=== PATIENT | male | born 1935 | race Hispanic/Latino ===

== ENCOUNTER 2019-09-20 15:50 | Emergency (ER) | payer OTHER ==
--- NOTE | 2019-09-20 16:46 | RAD REPORT ---
EXAM DESCRIPTION: CT - Head Brain Wo Cont - 09/20/2019 4:39 pm CLINICAL HISTORY: WEAKNESS Headache, drowsiness COMPARISON: No comparisons TECHNIQUE: All CT scans are performed using dose optimization technique as appropriate and may inclu de automated exposure control or mA/KV adjustment according to patient size. FINDINGS: No intracranial hemorrhage, hydrocephalus or extra-axial fluid collection.Moderate general ized brain atrophy is present with moderate periventricular and deep white matter chronic microvascul ar ischemic changes.No areas of brain edema or evidence of midline shift. The paranasal sinuses and mastoids are clear. The calvarium is intact. IMPRESSION: No acute intracranial abnormality.
[2019-09-20 16:47] LABS: Absolute Lymphocytes (CBC) 2.4 K/uL (0.7-4.9); Basophils % 0.8 % (0-1.3); Hematocrit 37.9 % (39.6-49.0); MPV 10.7 fL (7.6-11.3); RBC Red Blood Cell Count 4.23 M/uL (4.33-5.43)
[2019-09-20 17:07] LABS: Albumin 3.9 g/dL (3.4-5.0); Bilirubin Total 0.7 mg/dL (0.2-1.0); Protein, Total 7.4 g/dL (6.4-8.2)
[2019-09-20 17:20] LABS: Urine Bacteria <20 /HPF (NONE SEEN); Urine RBC NONE SEEN /HPF (NONE SEEN)
[2019-09-20 17:21] LABS: Urine Blood NEGATIVE (NEG); Urine Glucose NEGATIVE (NEG); Urine Protein NEGATIVE (NEG)
[2019-09-20 17:21] LABS: Urine Culture Reflex Order NOT NEEDED; Urine Mucus 1+ /HPF (NONE SEEN)
[2019-09-20] MEDS ORDERED: NA CHLORIDE 0.9% 500 ML ONE (17:38)
--- NOTE | 2019-09-20 18:03 | ER ---
Nurse's Notes [facility] Name: Adelso Ochoa Age: 83 yrs Sex: Male : 1935 Arrival Date: 09/20/2019 Time: 15:51 Bed 7 Private MD: Diagnosis: Weakness;Malaise and fatigue Presentation: 09/20 15:54 Presenting complaint: Patient states: My doctor sent me here because I need to be la1 checked out. I have been weak since last Friday. Transition of care: patient was not received from another setting of care. Onset of symptoms was September 20, 2019. Risk Assessment: Do you want to hurt yourself or someone else? Patient reports no desire to harm self or others. Initial Sepsis Screen: Does the patient meet any 2 criteria? No. Patient's initial sepsis screen is negative. Does the patient have a suspected source of infection? No. Patient's initial sepsis screen is negative. Care prior to arrival: None. 15:54 Method Of Arrival: Ambulatory la1 15:54 Acuity: PARVIZ 3 la1 Historical: - Allergies: 15:54 No Known Allergies; la1 - PMHx: 15:54 Hypertension; la1 - Immunization history:: Adult Immunizations up to date. - Social history:: Smoking status: Patient/guardian denies using tobacco. - Ebola Screening: : No symptoms or risks identified at this time. Screenin:02 Abuse screen: Denies threats or abuse. Nutritional screening: No deficits noted. tw2 Tuberculosis screening: No symptoms or risk factors identified. Fall Risk Secondary diagnosis (15 points) impaired mobility. Assessment: 16:25 General: Appears in no apparent distress. uncomfortable, Behavior is calm, cooperative, jl7 appropriate for age. Pain: Denies pain. Neuro: Level of Consciousness is awake, alert, obeys commands, Oriented to person, place, time, situation. Cardiovascular: Heart tones S1 S2 present Patient's skin is warm and dry. Respiratory: Airway is patent Respiratory effort is even, unlabored, Respiratory pattern is regular, symmetrical, Breath sounds are clear bilaterally. GI: No signs and/or symptoms were reported involving the gastrointestinal system. : Reports burning with urination, urinary frequency. Derm: Skin is pink, warm \T\ dry. 18:17 Reassessment: dc pending awaiting fluids to finish infusing. ss Vital Signs: 15:57 Pulse 70; Resp 16; Temp 97.2(TE); Pulse Ox 100% on R/A; Weight 73.48 kg; la1 15:58 BP 141 / 76; la1 16:42 BP 142 / 77; Pulse 54; Resp 16 S; Pulse Ox 100% on R/A; jl7 18:00 BP 155 / 77 Supine; Pulse 49; rv 18:00 BP 151 / 71 Sitting; Pulse 48; rv 18:00 BP 142 / 73 Standing; Pulse 54; rv 18:36 BP 134 / 72; Pulse 51; Resp 15; Pulse Ox 96% on R/A; rv ED Course: 15:51 Patient arrived in ED. as 15:54 Arm band placed on left wrist. la1 15:56 Triage completed. la1 16:02 Bed in low position. Call light in reach. Adult w/ patient. tw2 16:03 Ezequiel Rust, SAE is Primary Nurse. jl7 16:15 Marcelino Griggs NP is PHCP. pm1 16:15 Filippo Sarmiento MD is Attending Physician. pm1 16:25 monitoring analyst on. Pulse ox on. NIBP on. jl7 16:25 Initial lab(s) drawn, by nv, sent to lab. Urine collected: clean catch specimen, jl7 cloudy. Inserted saline lock: 20 gauge in right forearm, using aseptic technique. Blood collected. 16:39 CT Head Brain wo Cont In Process Unspecified. EDMS 17:04 EKG done, by ED staff, reviewed by Filippo Sarmiento MD. ms 18:36 No provider procedures requiring assistance completed. IV discontinued, intact, rv bleeding controlled, No redness/swelling at site. Pressure dressing applied. Administered Medications: 18:00 Drug: NS 0.9% 500 ml Route: IV; Rate: bolus; Site: right forearm; rv 18:37 Follow up: IV Status: Completed infusion rv Outcome: 18:03 Discharge ordered by . pm1 18:36 Discharged to home ambulatory, with family. rv 18:36 Condition: good 18:36 Discharge instructions given to patient, family, Instructed on discharge instructions, follow up and referral plans. Demonstrated understanding of instructions, follow-up care. 18:37 Patient left the ED. rv Signatures: Dispatcher [employer] EDMS Enid Rashid Maria ms Yadira, Heather, RN RN ss López, Chilo, RN RN la1 Marcelino Griggs, BARRER AND TACKER BARRER AND TACKER pm1 Mary Longoria, RN RN tw2 Ezequiel Rust, RN RN jl7 Dallas Mora, RN RN rv
--- NOTE | 2019-09-20 18:03 | EDPHYS ---
Physician Documentation [facility] Name: Adelso Ochoa Age: 83 yrs Sex: Male : 1935 Arrival Date: 09/20/2019 Time: 15:51 Bed 7 Private MD: ED Physician Filippo Sarmiento HPI: 09/20 16:29 This 83 yrs old Male presents to ER via Ambulatory with complaints of Weakness.pm1 16:29 The patient presents to the emergency department with weakness of the entire body, pm1 generalized weakness. Onset: The symptoms/episode began/occurred 1 week(s) ago. Associated signs and symptoms: The patient has no apparent associated signs or symptoms, Pertinent negatives: fever, headache, N/V/D, chest pain, cough, shortness of breath. Severity of symptoms: Pain is currently a 0 / 10. Patient's baseline: Neuro: alert and fully oriented, Motor: no deficits, Ambulation: walks without assistance, Speech: normal. The patient has been recently seen by a physician: the patient's primary care provider, Dr. Meadows earlier today. Patient reports of decreased energy for the past 1 week. Feels like he does not want to do anything. Patient presented to his PCP toady and was instructed to report to the ER for evaluation. Historical: - Allergies: 15:54 No Known Allergies; la1 - PMHx: 15:54 Hypertension; la1 - Immunization history:: Adult Immunizations up to date. - Social history:: Smoking status: Patient/guardian denies using tobacco. - Ebola Screening: : No symptoms or risks identified at this time. ROS: 16:29 Eyes: Negative for injury, pain, redness, and discharge, ENT: Negative for injury, pm1 pain, and discharge, Neck: Negative for injury, pain, and swelling, Cardiovascular: Negative for chest pain, palpitations, and edema. 16:29 Respiratory: Negative for shortness of breath, cough, wheezing, and pleuritic chest pain, Abdomen/GI: Negative for abdominal pain, nausea, vomiting, diarrhea, and constipation, Back: Negative for injury and pain, : Negative for injury, bleeding, discharge, and swelling, MS/Extremity: Negative for injury and deformity, Skin: Negative for injury, rash, and discoloration, Neuro: Negative for headache, weakness, numbness, tingling, and seizure. 16:29 Constitutional: Positive for fatigue, malaise, Negative for body aches, chills, fever, poor PO intake. Exam: 16:29 Constitutional: This is a well developed, well nourished patient who is awake, alert, pm1 and in no acute distress. Head/Face: Normocephalic, atraumatic. Neck: Trachea midline, no thyromegaly or masses palpated, and no cervical lymphadenopathy. Supple, full range of motion without nuchal rigidity, or vertebral point tenderness. No Meningismus. Chest/axilla: Normal chest wall appearance and motion. Nontender with no deformity. No lesions are appreciated. Cardiovascular: Regular rate and rhythm with a normal S1 and S2. No gallops, murmurs, or rubs. Normal PMI, no JVD. No pulse deficits. Respiratory: Lungs have equal breath sounds bilaterally, clear to auscultation and percussion. No rales, rhonchi or wheezes noted. No increased work of breathing, no retractions or nasal flaring. Abdomen/GI: Soft, non-tender, with normal bowel sounds. No distension or tympany. No guarding or rebound. No evidence of tenderness throughout. Back: No spinal tenderness. No costovertebral tenderness. Full range of motion. Skin: Warm, dry with normal turgor. Normal color with no rashes, no lesions, and no evidence of cellulitis. MS/ Extremity: Pulses equal, no cyanosis. Neurovascular intact. Full, normal range of motion. 16:29 Neuro: Orientation: is normal, Mentation: is normal, Motor: is normal, moves all fours, Sensation: is normal, no obvious gross deficits. Vital Signs: 15:57 Pulse 70; Resp 16; Temp 97.2(TE); Pulse Ox 100% on R/A; Weight 73.48 kg; la1 15:58 BP 141 / 76; la1 16:42 BP 142 / 77; Pulse 54; Resp 16 S; Pulse Ox 100% on R/A; jl7 18:00 BP 155 / 77 Supine; Pulse 49; rv 18:00 BP 151 / 71 Sitting; Pulse 48; rv 18:00 BP 142 / 73 Standing; Pulse 54; rv 18:36 BP 134 / 72; Pulse 51; Resp 15; Pulse Ox 96% on R/A; rv MDM: 16:15 Patient medically screened. pm1 18:02 Data reviewed: vital signs. Data interpreted: Pulse oximetry: on room air is 100 %. pm1 Interpretation: normal. Counseling: I had a detailed discussion with the patient and/or guardian regarding: the historical points, exam findings, and any diagnostic results supporting the discharge/admit diagnosis, lab results, radiology results, the need for outpatient follow up, a family practitioner, to return to the emergency department if symptoms worsen or persist or if there are any questions or concerns that arise at home. 09/20 16:22 Order name: Urine Microscopic Only; Complete Time: 17:30 pm1 09/20 16:22 Order name: CBC with Diff; Complete Time: 17:06 pm1 09/20 16:22 Order name: CMP; Complete Time: 17:30 pm1 09/20 16:22 Order name: CT Head Brain wo Cont; Complete Time: 16:50 pm1 09/20 16:40 Order name: Urine Dipstick--Ancillary (enter results); Complete Time: 17:30 ms 09/20 17:06 Order name: TSH; Complete Time: 17:38 pm1 09/20 16:22 Order name: Urine Dipstick-Ancillary (obtain specimen); Complete Time: 16:36 pm1 09/20 16:22 Order name: IV Saline Lock; Complete Time: 16:36 pm1 09/20 16:22 Order name: EKG; Complete Time: 16:23 pm1 09/20 16:22 Order name: EKG - Nurse/Tech; Complete Time: 17:04 pm1 09/20 17:31 Order name: Orthostatic Blood Pressure; Complete Time: 18:00 pm1 Administered Medications: 18:00 Drug: NS 0.9% 500 ml Route: IV; Rate: bolus; Site: right forearm; rv 18:37 Follow up: IV Status: Completed infusion rv Disposition: 09/21 07:14 Co-signature as Attending Physician, Filippo Sarmiento MD I agree with the assessment and isaak plan of care. Disposition: 09/20/19 18:03 Discharged to Home. Impression: Weakness, Malaise and fatigue. - Condition is Stable. - Discharge Instructions: Weakness, Fatigue. - Medication Reconciliation Form, Thank You Letter, Antibiotic Education, Prescription Opioid Use form. - Follow up: Emergency Department; When: As needed; Reason: Worsening of condition. Follow up: Private Physician; When: 2 - 3 days; Reason: Recheck today's complaints, Continuance of care, Re-evaluation by your physician. - Problem is new. - Symptoms have improved. Signatures: Dispatcher [employer] EDMS Filippo Sarmiento, Chilo Nagel MD, cha, RN RN la1 Marcelino Griggs, LUMBER CHECKER LUMBER CHECKER pm1 Dallas Mora, RN RN rv Corrections: (The following items were deleted from the chart) 09/20 18:03 18:03 09/20/2019 18:03 Discharged to Home. Impression: Weakness. Condition is Stable. pm1 Forms are Medication Reconciliation Form, Thank You Letter, Antibiotic Education, Prescription Opioid Use. Follow up: Emergency Department; When: As needed; Reason: Worsening of condition. Follow up: Private Physician; When: 2 - 3 days; Reason: Recheck today's complaints, Continuance of care, Re-evaluation by your physician. Problem is new. Symptoms have improved. pm1 18:37 18:03 09/20/2019 18:03 Discharged to Home. Impression: Weakness; Malaise and fatigue. rv Condition is Stable. Discharge Instructions: Weakness, Fatigue. Forms are Medication Reconciliation Form, Thank You Letter, Antibiotic Education, Prescription Opioid Use. Follow up: Emergency Department; When: As needed; Reason: Worsening of condition. Follow up: Private Physician; When: 2 - 3 days; Reason: Recheck today's complaints, Continuance of care, Re-evaluation by your physician. Problem is new. Symptoms have improved. pm1
[2019-09-20 19:09] VITALS: TEMP 97.2
[2019-09-20 19:14] VITALS: BP 134/72; O2SAT 96
--- NOTE | 2019-09-21 05:30 | EKG ---
Test Date: 2019-09-20 Test Time: 17:00:16 Medical Office Specialist: DELL MEASUREMENT RESULTS: Intervals: Rate: 52 VT: 216 QRSD: 98 QT: 468 QTc: 435 [place]: P: 52 VT: 216 QRS: 40 T: 63 INTERPRETIVE STATEMENTS: Sinus bradycardia with 1st degree AV block Otherwise normal ECG No previous ECG available for comparison Electronically Signed On 09-21-19 05:30:14 LITHOSTRIPPER by Ernesto Kendrick
== END 2019-09-20 18:37 | disposition home or self-care (01) ==
LOC: ER 15:50
DX: R53.81 Other malaise (principal); R53.83 Other fatigue; I10 Essential (primary) hypertension
CPT/HCPCS: 93005; 85025; 36415; 84443; 80053; 70450; 96360; 99284; J7040; 81003; 81015

== ENCOUNTER 2020-11-28 18:50 | Emergency (ER) | payer OTHER ==
[2020-11-28 23:35] LABS: Absolute Lymphocytes (CBC) 3.4 K/uL (0.7-4.9); Basophils % 0.3 % (0-1.3); Hematocrit 39.3 % (39.6-49.0); Lymphocytes % 39.4 % (15.3-44.8); MPV 10.8 fL (7.6-11.3); RBC Red Blood Cell Count 4.32 M/uL (4.33-5.43)
[2020-11-28 23:38] LABS: Protime INR 0.99
[2020-11-28] MEDS ORDERED: FOLIC ACID 5 MG/ML VIAL ONE ×2 (23:42→23:46)
[2020-11-28] MEDS ORDERED: NA CHLORIDE 0.9% 100 ML ONE (23:45)
[2020-11-28] MEDS ORDERED: NA CHLORIDE 0.9% 1,000 ML ONE (23:46)
[2020-11-29 00:04] LABS: ALT/SGPT 16 U/L (12-78); AST/SGOT 21 U/L (15-37); Albumin 3.7 g/dL (3.4-5.0); Alkaline Phosphatase 90 U/L (45-117); BUN Blood Urea Nitrogen 17 mg/dL (7-18); Bicarbonate 30 mmol/L (21-32); Bilirubin Direct 0.2 mg/dL (0-0.2); Bilirubin Total 0.6 mg/dL (0.2-1.0); Glucose Level 102 mg/dL (74-106); Lipase 138 U/L (73-393); Magnesium 2.1 mg/dL (1.8-2.4); NT PRO-BNP 675 pg/mL (<450); Potassium 3.7 mmol/L (3.5-5.1); Protein, Total 7.6 g/dL (6.4-8.2); Sodium Level 142 mmol/L (136-145); Troponin (Emerg Dept Use Only) < 0.02 ng/mL (0.0-0.045)
[2020-11-29 00:47] LABS: Urine Blood NEGATIVE (NEG); Urine Glucose NEGATIVE (NEG); Urine Protein NEGATIVE (NEG)
[2020-11-29] MEDS ORDERED: ASPIRIN 81 MG CHEWABLE TABLET ONE (01:18)
[2020-11-29] MEDS ORDERED: dexAMETHasone 10 MG/ML VIAL ONE (01:42)
[2020-11-29] MEDS ORDERED: FAMOTIDINE 20 MG/2 ML VIAL IV ONE (01:43)
[2020-11-29] MEDS ORDERED: NA CHLORIDE 0.9% 250 ML ONE (01:43)
[2020-11-29] MEDS ORDERED: AZITHROMYCIN 500 MG INJ IVPB ONE (01:43)
[2020-11-29] MEDS ORDERED: CEFTRIAXONE/SWI 1gm 1 GM/10 ML SYR ONE (01:44)
--- NOTE | 2020-11-29 02:42 | ER ---
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 States he iw would make up stories that aren't true. My sister says he does that sometimes, but it has been getting worse and more frequent. Coronavirus screen: At this time, the client does not indicate any symptoms associated with coronavirus-19. Ebola Screen: Patient negative for fever greater than or equal to 101.5 degrees Fahrenheit, and additional compatible Ebola Virus Disease symptoms Patient denies exposure to infectious person. Patient denies travel to an Ebola-affected area in the 21 days before illness onset. No symptoms or risks identified at this time. Initial Sepsis Screen: Does the patient meet any 2 criteria? No. Patient's initial sepsis screen is negative. Does the patient have a suspected source of infection? No. Patient's initial sepsis screen is negative. Risk Assessment: Do you want to hurt yourself or someone else? Patient reports no desire to harm self or others. Onset of symptoms was November 20, 2020. 19:30 Method Of Arrival: Ambulatory iw 19:30 Acuity: PARVIZ 3 iw Triage Assessment: 19:41 General: Appears in no apparent distress. comfortable, Behavior is calm, cooperative. iw Pain: Denies pain. Historical: - Allergies: 19:41 No Known Allergies; iw - PMHx: 19:41 Hypertension; Hyperlipidemia; GERD; Gout; iw - Immunization history:: Adult Immunizations up to date. - Social history:: Smoking status: Patient/guardian denies using tobacco, but has a distant history of tobacco abuse. - Family history:: not pertinent. Screenin:16 Abuse screen: Denies threats or abuse. Nutritional screening: No deficits noted. ea Tuberculosis screening: No symptoms or risk factors identified. Fall Risk IV access (20 points). Assessment: 23:16 General: Appears in no apparent distress. Behavior is cooperative. Pain: Denies pain. ea Neuro: Level of Consciousness is awake, alert, obeys commands, Oriented to person, place. Respiratory: Airway is patent Respiratory effort is even, unlabored, Respiratory pattern is regular, symmetrical. Derm: Skin is pink, warm \\T\\ dry. 11/29 00:21 Reassessment: Patient and/or family updated on plan of care and expected duration. Pain ea level reassessed. Pt alert and oriented to self, respirations even and unlabored, chest expansions even and symmetrical. Pt denies pain at this time. Son reports pt has been hallucinating for the past few days. 02:55 Reassessment: Patient and/or family updated on plan of care and expected duration. Pain ea level reassessed. Patient is alert, oriented x 3, equal unlabored respirations, skin warm/dry/pink. Discharge instruction given to patient and family , verbalized the understanding of instruction. Pt left ED via wheelchair accompanied by son. Vital Signs: 11/28 19:30 BP 174 / 77; Pulse 86; Resp 18; Temp 98.6; Pulse Ox 99% ; Weight 73.48 kg; Height 5 ft. iw 5 in. (165.10 cm); Pain 0/10; 22:00 BP 118 / 83 LA (auto/); Pulse 96 MON; Resp 18 S; Pulse Ox 94% on R/A; sf 23:36 BP 146 / 64 (auto/); Pulse 66 MON; Resp 18 S; Pulse Ox 93% on R/A; sf 11/29 00:25 BP 196 / 80; Pulse 60; Resp 18; Pulse Ox 100% ; rr5 02:55 BP 167 / 89; Pulse 64; Resp 18; Temp 98.2; Pulse Ox 100% ; ea 11/28 19:30 Body Mass Index 26.96 (73.48 kg, 165.10 cm) iw ED Course: 11/28 18:55 Patient arrived in ED. ds1 19:30 Arm band placed on right wrist. iw 19:38 Triage completed. iw 22:52 Filippo Sarmiento MD is Attending Physician. isaak 23:15 Meme Chacon, SAE is Primary Nurse. ea 23:16 Patient has correct armband on for positive identification. Bed in low position. Call ea light in reach. Side rails up X2. 23:16 Inserted saline lock: 20 gauge in right antecubital area, using aseptic technique. ea Blood collected. 23:42 CT Head Brain wo Cont In Process Unspecified. EDMS 11/29 00:02 XRAY Chest (1 view) In Process Unspecified. EDMS 00:49 CT Chest For PE Angio In Process Unspecified. EDMS 01:18 COVID-19 : Document "Date of Symptom Onset" if Symptomatic. Sent. sf 02:41 Ced Quiñonez MD is Referral Physician. isaak 02:41 Sulaiman Melendez MD is Referral Physician. [facility] 02:55 No provider procedures requiring assistance completed. IV discontinued, intact, ea bleeding controlled, No redness/swelling at site. Pressure dressing applied. Administered Medications: 11/28 23:44 Drug: NS 0.9% 500 ml Route: IV; Rate: bolus; Site: right antecubital; sf 11/29 02:59 Follow up: IV Status: Completed infusion ea 11/28 23:49 Drug: foLIC Acid 1 mg Route: IVPB; Site: right antecubital; sf 11/29 02:59 Follow up: IV Status: Completed infusion ea 00:20 Drug: NS 0.9% 1000 ml Route: IV; Rate: 125 ml/hr; Site: right antecubital; ea 03:00 Follow up: IV Status: Completed infusion ea 01:35 Drug: Pepcid 20 mg Route: IVP; Site: right antecubital; sf 02:57 Follow up: Response: No adverse reaction ea 02:58 Follow up: Response: No adverse reaction sf 01:36 Drug: Decadron - Dexamethasone 10 mg Route: IVP; Infused Over: 2 mins; Site: right sf antecubital; 02:56 Follow up: Response: No adverse reaction ea 02:57 Follow up: Response: No adverse reaction sf 01:38 Drug: Rocephin 1 grams Route: IV; Rate: per protocol; Infused Over: 5 mins; Site: right sf antecubital; 02:57 Follow up: Response: No adverse reaction sf 02:59 Follow up: Response: No adverse reaction; IV Status: Completed infusion ea 01:44 Drug: Zithromax 500 mg Route: IVPB; Infused Over: 1 hrs; Site: right antecubital; sf 02:58 Follow up: Response: No adverse reaction; IV Status: Completed infusion ea 01:46 Drug: Aspirin Chewable Tablet 324 mg Route: PO; ea 02:56 Follow up: Response: No adverse reaction ea Outcome: 02:41 Discharge ordered by . isaak 02:57 Discharged to home via wheelchair, with family. ea 02:57 Condition: stable 02:57 Discharge instructions given to patient, family, Instructed on discharge instructions, follow up and referral plans. Demonstrated understanding of instructions, follow-up care. 03:05 Patient left the ED. ea Signatures: Dispatcher [employer] EDFilippo Mares MD MD cha Sanford, Demi ds1 Trupti Myers RN RN iw Meme Chacon RN RN ea Roque, Raymond RN RN rr5 Jeferson Jacobs RN RN sf
--- NOTE | 2020-11-29 02:42 | EDPHYS ---
Physician Documentation [facility] Name: Adelso Ochoa Age: 85 yrs Sex: Male : 1935 Arrival Date: 11/28/2020 Time: 18:55 Bed 6 Private MD: ED Physician Filippo Sarmiento HPI: 11/29 00:13 This 85 yrs old Male presents to ER via Ambulatory with complaints of isaak Confusion, Hallucinations. 00:13 The patient's problem is reported as altered mental status, confused, at times. Onset: isaak The symptoms/episode began/occurred 2 day(s) ago. Duration: The episodes are intermittent. Context: the episode(s) was witnessed, by family, son. The symptoms are alleviated by nothing. The symptoms are aggravated by nothing. The patient presents with trouble concentrating. Onset: The symptoms/episode began/occurred and improved intermittent. Possible causes: CVA or TIA, unknown. Associated signs and symptoms: Pertinent positives: confusion. Current symptoms: In the emergency department the patient's symptoms have improved, markedly, is more alert. Historical: - Allergies: 11/28 19:41 No Known Allergies; iw - PMHx: 19:41 Hypertension; Hyperlipidemia; GERD; Gout; iw - Immunization history:: Adult Immunizations up to date. - Social history:: Smoking status: Patient/guardian denies using tobacco, but has a distant history of tobacco abuse. - Family history:: not pertinent. ROS: 11/29 00:13 Constitutional: Negative for fever, chills, and weight loss, Eyes: Negative for injury, isaak pain, redness, and discharge, ENT: Negative for injury, pain, and discharge, Neck: Negative for injury, pain, and swelling, Cardiovascular: Negative for chest pain, palpitations, and edema, Respiratory: Negative for shortness of breath, cough, wheezing, and pleuritic chest pain, Abdomen/GI: Negative for abdominal pain, nausea, vomiting, diarrhea, and constipation, Back: Negative for injury and pain, : Negative for injury, bleeding, discharge, and swelling, MS/Extremity: Negative for injury and deformity, Skin: Negative for injury, rash, and discoloration, Psych: Negative for depression, anxiety, suicide ideation, homicidal ideation, and hallucinations, Allergy/Immunology: Negative for hives, rash, and allergies, Endocrine: Negative for neck swelling, polydipsia, polyuria, polyphagia, and marked weight changes, Hematologic/Lymphatic: Negative for swollen nodes, abnormal bleeding, and unusual bruising. Neuro: Positive for altered mental status, weakness. Exam: 00:13 Radiologist reports: negative isaak 00:13 Constitutional: This is a well developed, well nourished patient who is awake, alert, and in no acute distress. Head/Face: Normocephalic, atraumatic. Eyes: Pupils equal round and reactive to light, extra-ocular motions intact. Lids and lashes normal. Conjunctiva and sclera are non-icteric and not injected. Cornea within normal limits. Periorbital areas with no swelling, redness, or edema. ENT: Nares patent. No nasal discharge, no septal abnormalities noted. Tympanic membranes are normal and external auditory canals are clear. Oropharynx with no redness, swelling, or masses, exudates, or evidence of obstruction, uvula midline. Mucous membranes moist. Neck: Trachea midline, no thyromegaly or masses palpated, and no cervical lymphadenopathy. Supple, full range of motion without nuchal rigidity, or vertebral point tenderness. No Meningismus. Chest/axilla: Normal chest wall appearance and motion. Nontender with no deformity. No lesions are appreciated. Cardiovascular: Regular rate and rhythm with a normal S1 and S2. No gallops, murmurs, or rubs. Normal PMI, no JVD. No pulse deficits. Respiratory: Lungs have equal breath sounds bilaterally, clear to auscultation and percussion. No rales, rhonchi or wheezes noted. No increased work of breathing, no retractions or nasal flaring. Abdomen/GI: Soft, non-tender, with normal bowel sounds. No distension or tympany. No guarding or rebound. No evidence of tenderness throughout. Back: No spinal tenderness. No costovertebral tenderness. Full range of motion. Male : Normal genitalia with no discharge or lesions. Skin: Warm, dry with normal turgor. Normal color with no rashes, no lesions, and no evidence of cellulitis. MS/ Extremity: Pulses equal, no cyanosis. Neurovascular intact. Full, normal range of motion. Neuro: Awake and alert, GCS 15, oriented to person, place, time, and situation. Cranial nerves II-XII grossly intact. Motor strength 5/5 in all extremities. Sensory grossly intact. Cerebellar exam normal. Normal gait. Psych: Awake, alert, with orientation to person, place and time. Behavior, mood, and affect are within normal limits. 00:21 ECG was reviewed by the Attending Physician. isaak 00:27 ECG was reviewed by the Attending Physician. isaak Vital Signs: 11/28 19:30 BP 174 / 77; Pulse 86; Resp 18; Temp 98.6; Pulse Ox 99% ; Weight 73.48 kg; Height 5 ft. iw 5 in. (165.10 cm); Pain 0/10; 22:00 BP 118 / 83 LA (auto/); Pulse 96 MON; Resp 18 S; Pulse Ox 94% on R/A; sf 23:36 BP 146 / 64 (auto/); Pulse 66 MON; Resp 18 S; Pulse Ox 93% on R/A; sf 11/29 00:25 BP 196 / 80; Pulse 60; Resp 18; Pulse Ox 100% ; rr5 02:55 BP 167 / 89; Pulse 64; Resp 18; Temp 98.2; Pulse Ox 100% ; ea 11/28 19:30 Body Mass Index 26.96 (73.48 kg, 165.10 cm) iw MDM: 11/28 22:52 Patient medically screened. [facility] 11/29 00:16 Differential diagnosis: CVA, TIA, Dementia, Alzheimer disease, metabolic disorder. isaak Differential Diagnosis: CVA, electrolyte abnormality, hypoglycemia, UTI, volume depletion. Data reviewed: vital signs, nurses notes, lab test result(s), EKG, radiologic studies. Data interpreted: elder counselor: rate is 66 beats/min, rhythm is regular. Test interpretation: by ED physician or midlevel provider: ECG, plain radiologic studies. Counseling: I had a detailed discussion with the patient and/or guardian regarding: the historical points, exam findings, and any diagnostic results supporting the discharge/admit diagnosis, lab results, radiology results, the need for outpatient follow up. 11/28 23:00 Order name: Basic Metabolic Panel [facility] 11/28 23:00 Order name: CBC with Diff [facility] 11/28 23:00 Order name: LFT's [facility] 11/28 23:00 Order name: Magnesium [facility] 11/28 23:00 Order name: NT PRO-BNP [facility] 11/28 23:00 Order name: PT-INR; Complete Time: 23:45 [facility] 11/28 23:00 Order name: Troponin (emerg Dept Use Only); Complete Time: 00:09 [facility] 11/28 23:00 Order name: Lipase; Complete Time: 00:09 [facility] 11/28 23:00 Order name: Blood Culture Adult (2) [facility] 11/28 23:00 Order name: Lactate; Complete Time: 00:29 [facility] 11/28 23:00 Order name: Basic Metabolic Panel; Complete Time: 00:09 [facility] 11/28 23:01 Order name: CBC with Automated Diff; Complete Time: 23:45 [facility] 11/28 23:01 Order name: Liver (Hepatic) Function; Complete Time: 00:09 [facility] 11/28 23:00 Order name: XRAY Chest (1 view) [facility] 11/28 23:00 Order name: CT Head Brain wo Cont [facility] 11/28 23:01 Order name: Magnesium; Complete Time: 00:09 [facility] 11/28 23:01 Order name: NT PRO-BNP; Complete Time: 00:09 [facility] 11/29 00:12 Order name: CT Chest For PE Angio [facility] 11/29 00:15 Order name: Urine Dipstick--Ancillary (enter results); Complete Time: 00:48 tt3 11/29 00:23 Order name: Urine Culture [facility] 11/29 01:07 Order name: COVID-19 : Document "Date of Symptom Onset" if Symptomatic. [facility] 11/29 02:36 Order name: SARS-COV-2 RT PCR; Complete Time: 02:41 [facility] 11/28 23:00 Order name: EKG; Complete Time: 23:02 [facility] 11/28 23:00 Order name: Cardiac monitoring; Complete Time: 00:20 [facility] 11/28 23:00 Order name: EKG - Nurse/Tech; Complete Time: 00:20 [facility] 11/28 23:00 Order name: IV Saline Lock; Complete Time: 00:20 [facility] 11/28 23:00 Order name: Labs collected and sent; Complete Time: 00:20 [facility] 11/28 23:00 Order name: O2 Per Protocol; Complete Time: 00:20 [facility] 11/28 23:00 Order name: O2 Sat Monitoring; Complete Time: 00:20 [facility] 11/28 23:00 Order name: Urine Dipstick-Ancillary (obtain specimen); Complete Time: 00:19 [facility] 11/29 00:27 Order name: EKG; Complete Time: : isaak 11/29 00:27 Order name: EKG - Nurse/Tech; Complete Time: 00: isaak EC:21 Rate is 65 beats/min. Rhythm is regular. QRS [place] is Normal. [place] interval is normal. QRS isaak interval is normal. QT interval is normal. No Q waves. T waves are Normal. ST Segment is elevated in leads I, II. Clinical impression: NSR w/ Non-specific ST/T Changes. Interpreted by me. 00:27 Rate is 60 beats/min. Rhythm is regular. QRS [place] is Normal. [place] interval is prolonged isaak at 214 msec. QRS interval is normal. QT interval is normal. No Q waves. T waves are Normal. No ST changes noted. Clinical impression: NSR w/ Non-specific ST/T Changes and No evidence of ischemia. Interpreted by me. Reviewed by me. Administered Medications: 11/28 23:44 Drug: NS 0.9% 500 ml Route: IV; Rate: bolus; Site: right antecubital; 11/29 02:59 Follow up: IV Status: Completed infusion ea 11/28 23:49 Drug: foLIC Acid 1 mg Route: IVPB; Site: right antecubital; sf 11/29 02:59 Follow up: IV Status: Completed infusion ea 00:20 Drug: NS 0.9% 1000 ml Route: IV; Rate: 125 ml/hr; Site: right antecubital; ea 03:00 Follow up: IV Status: Completed infusion ea 01:35 Drug: Pepcid 20 mg Route: IVP; Site: right antecubital; sf 02:57 Follow up: Response: No adverse reaction ea 02:58 Follow up: Response: No adverse reaction sf 01:36 Drug: Decadron - Dexamethasone 10 mg Route: IVP; Infused Over: 2 mins; Site: right sf antecubital; 02:56 Follow up: Response: No adverse reaction ea 02:57 Follow up: Response: No adverse reaction sf 01:38 Drug: Rocephin 1 grams Route: IV; Rate: per protocol; Infused Over: 5 mins; Site: right sf antecubital; 02:57 Follow up: Response: No adverse reaction sf 02:59 Follow up: Response: No adverse reaction; IV Status: Completed infusion ea 01:44 Drug: Zithromax 500 mg Route: IVPB; Infused Over: 1 hrs; Site: right antecubital; sf 02:58 Follow up: Response: No adverse reaction; IV Status: Completed infusion ea 01:46 Drug: Aspirin Chewable Tablet 324 mg Route: PO; ea 02:56 Follow up: Response: No adverse reaction ea Disposition: 11/29/20 02:41 Discharged to Home. 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 - Condition is Stable. - Discharge Instructions: Confusion, Dementia, Hernia, Adult, Community-Acquired Pneumonia, Adult, Hernia, Adult, [id number], Aspirin and Your Heart, Dementia, [id number]. - Prescriptions for Folic Acid 1 mg Oral Tablet - take 1 tablet by ORAL route once daily; 30 tablet. dexamethasone 2 mg Oral tablet - take 1 tablet by ORAL route 2 times per day; 10 tablet. Pepcid 20 mg Oral Tablet - take 1 tablet by ORAL route every 12 hours for 30 days; 60 tablet. Albuterol Sulfate 90 mcg/actuation - inhale 1-2 puff by INHALATION route every 4-6 hours; 1 Inhaler. Zithromax 500 mg Oral Tablet - take 1 tablet by ORAL route once daily for 4 days; 4 tablet. - Medication Reconciliation Form, Thank You Letter, Antibiotic Education, Prescription Opioid Use form. - Follow up: Private Physician; When: 2 - 3 days; Reason: Recheck today's complaints, Continuance of care, Re-evaluation by your physician. Follow up: Ced Quiñonez; When: 2 - 3 days; Reason: Recheck today's complaints. Follow up: Sulaiman Melendez; When: 2 - 3 days; Reason: Recheck today's complaints, Re-evaluation by your physician. - Problem is new. - Symptoms have improved. Signatures: Dispatcher [employer] EDMS Filippo Sarmiento MD MD cha Williams, Irene, RN Chilo Moore, EXCAVATING CONTRACTOR-C EXCAVATING CONTRACTOR-Cla1 Meme Chacon RN RN ea Fitzpatrick, Steven, RN RN sf Corrections: (The following items were deleted from the chart) 11/28 23:28 23:01 CORONAVIRUS+MR.LAB.BRZ ordered. EDMS EDMS 11/29 03:05 02:41 11/29/2020 02:41 Discharged to Home. 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 Condition is Stable. Discharge Instructions: Confusion, Dementia, Aspirin and Your Heart, Dementia, [id number], Hernia, Adult, Community-Acquired Pneumonia, Adult, Hernia, Adult, [id number]. Prescriptions for Folic Acid 1 mg Oral Tablet - take 1 tablet by ORAL route once daily; 30 tablet, dexamethasone 2 mg Oral tablet - take 1 tablet by ORAL route 3 times per day; 15 tablet, Pepcid 20 mg Oral Tablet - take 1 tablet by ORAL route every 12 hours for 30 days; 60 tablet, Zithromax Z-[place] 250 mg Oral Tablet - take 1 tablet by ORAL route as directed for 5 days Day 1 - take two (2) tablets one time. Day 2, 3, 4 , 5 take one (1) tablet once daily.; 6 tablet, Albuterol Sulfate 90 mcg/actuation - inhale 1-2 puff by INHALATION route every 4-6 hours; 1 Inhaler. and Forms are Medication Reconciliation Form, Thank You Letter, Antibiotic Education, Prescription Opioid Use. Follow up: Private Physician; When: 2 - 3 days; Reason: Recheck today's complaints, Continuance of care, Re-evaluation by your physician. Follow up: Ced Quiñonez; When: 2 - 3 days; Reason: Recheck today's complaints. Follow up: Sulaiman Melendez; When: 2 - 3 days; Reason: Recheck today's complaints, Re-evaluation by your physician. Problem is new. Symptoms have improved. isaak
[2020-11-29 03:14] VITALS: O2SAT 100
[2020-11-29 03:15] VITALS: BP 167/89; TEMP 98.2
--- NOTE | 2020-11-29 11:01 | RAD REPORT ---
EXAM DESCRIPTION: Chest Single View CLINICAL HISTORY: COUGH COMPARISON: None. TECHNIQUE: XR CHEST 1 VIEW 11/28/2020 11:00 PM EXPLORATION DRILLER FINDINGS: The heart is borderline in size. Lungs are clear without consolidation, atelectasis, mass or edema. There is no pleural effusion. There is no pneumothorax. There are no acute osseous findings IMPRESSION: Clear lungs. Electronically signed by: Sebas Henry MD 11/29/2020 12:23 AM EXPLORATION DRILLER Due to temporary technical issues with the PACS/Fluency reporting system, reports are being signed by the in house radiologist without review as a courtesy to ensure prompt reporting. The interpreting r adiologist is fully responsible for the content of the report.
--- NOTE | 2020-11-29 11:02 | RAD REPORT ---
EXAM DESCRIPTION: CT of the head without contrast CLINICAL HISTORY: CONFUSED COMPARISON: 09/20/2019 TECHNIQUE: Axial CT of the head obtained from the skull apex to the skull base without contrast. FINDINGS: No acute intracranial hemorrhage identified. No mass, mass effect, shift of the midline, a bnormal extra-axial fluid collection or CT evidence of acute ischemic change identified. The ventricu lar system and sulcal spaces are mildly enlarged compatible with mild cerebral atrophy. Confluent a reas of hypodensity throughout the supratentorial white matter are nonspecific and may be related to chronic small vessel ischemic change. The visualized paranasal sinuses and mastoid air cells are well aerated. No skull fracture identifi ed. Visualized orbits and globes are unremarkable. Atherosclerotic calcification of the intracranial internal carotid arteries. IMPRESSION: 1. No acute intracranial abnormality by CT criteria. This exam was performed according to our departmental dose-optimization program, which includes autom ated exposure control, adjustment of the mA and/or kV according to patient size and/or use of iterati ve reconstruction technique. Electronically signed by: Roshan King 11/28/2020 11:50 PM SCORER SINGLE Due to temporary technical issues with the PACS/Fluency reporting system, reports are being signed by the in house radiologist without review as a courtesy to ensure prompt reporting. The interpreting r adiologist is fully responsible for the content of the report.
--- NOTE | 2020-11-29 11:03 | RAD REPORT ---
EXAM DESCRIPTION: Chest For Pe Angio CLINICAL HISTORY: COUGH COMPARISON: None Available. TECHNIQUE: CTA of the chest obtained following the uncomplicated intravenous administration of iodin ated contrast. 3-D/MIP reformatted images of the chest available for evaluation. The most inferior as pect of the lung bases are not identified on this study. FINDINGS: Chest: Pulmonary arteries: Contrast bolus is adequate.No filling defects identified in the pulmonary arterie s to suggest pulmonary embolus. Thyroid: No abnormalities of the visualized thyroid. Great Vessels: Great vessels have normal anatomic configuration. Thoracic Aorta: Atherosclerotic calcification of the thoracic aorta. Heart: Coronary artery atherosclerosis. No cardiomegaly or significant pericardial effusion. Lymph Nodes: No enlarged mediastinal lymph nodes identified. Esophagus: Large hiatal hernia with organoaxial rotation of the stomach. No evidence of obstruction a t this time. Other: No additional findings. Lungs: Patchy peripheral right lung groundglass opacities. Pleura: No pleural effusion or pneumothorax. Trachea/Airways: No abnormalities of the visualized trachea or airways. Bones: Multilevel degenerative endplate spondylosis and facet arthropathy. Upper Abdomen: Limited images of the upper abdomen demonstrate no definite abnormalities of visualize d portions of the liver and spleen. IMPRESSION: 1. No pulmonary embolus. 2. Patchy peripheral right lung groundglass opacities. Imaging features can be seen with viral pneumo vivienne, though are nonspecific and can occur with a variety of infectious and noninfectious processes. P neInd 3. Coronary artery atherosclerosis. 4. Large hiatal hernia with organoaxial rotation of the stomach. No evidence of obstruction at this t emmett. This exam was performed according to our departmental dose-optimization program, which includes autom ated exposure control, adjustment of the mA and/or kV according to patient size and/or use of iterati ve reconstruction technique. Electronically signed by: Roshan King 11/29/2020 12:59 AM TROUBLE DISPATCHER Due to temporary technical issues with the PACS/Fluency reporting system, reports are being signed by the in house radiologist without review as a courtesy to ensure prompt reporting. The interpreting r adiologist is fully responsible for the content of the report.
--- NOTE | 2020-11-29 12:16 | EKG ---
Test Date: 2020-11-29 Test Time: 00:25:14 [employer]ottler Machine Feeder: DELL MEASUREMENT RESULTS: Intervals: Rate: 60 SD: 214 QRSD: 84 QT: 452 QTc: 452 [place]: P: 28 SD: 214 QRS: 27 T: 0 INTERPRETIVE STATEMENTS: Sinus rhythm with 1st degree AV block Cannot rule out Anterior infarct, age undetermined Abnormal ECG Compared to ECG 11/28/2020 23:28:02 First degree AV block now present Myocardial infarct finding now present Electronically Signed On 11-29-20 12:15:14 BANKING OFFICER by Rory Perales
--- NOTE | 2020-11-29 12:17 | EKG ---
Test Date: 2020-11-28 Test Time: 23:28:02 Seat Cover Maker: TRISTIN MEASUREMENT RESULTS: Intervals: Rate: 65 VT: 192 QRSD: 86 QT: 456 QTc: 474 [place]: P: 108 VT: 192 QRS: 23 T: 63 INTERPRETIVE STATEMENTS: Normal sinus rhythm Normal ECG Compared to ECG 09/20/2019 17:00:16 Sinus bradycardia no longer present First degree AV block no longer present Electronically Signed On 11-29-20 12:15:15 SHIP FITTER by Rory Perales
== END 2020-11-29 03:05 | disposition home or self-care (01) ==
LOC: ER 18:50
DX: F03.90 Unspecified dementia, unspecified severity, without behavioral disturbance, psychotic disturbance, mood disturbance, and anxiety (principal); J15.8 Pneumonia due to other specified bacteria; Q40.1 Congenital hiatus hernia; Z20.822 Contact with and (suspected) exposure to COVID-19; I10 Essential (primary) hypertension
CPT/HCPCS: 96365; 96367; 93005 ×2; 87040 ×2; 85025; 80048; 36415; 83735; 85610; 80076; 83605; 81003; 84484; 83690; 83880; 70450; 71275; 71045; 96375; 99284; U0003; Q9967; J0456; J1100; J0696; J7050; J7030